=== PATIENT | female | born 1950 | race Caucasian/White ===

== ENCOUNTER 2021-07-14 05:57 | Observation (INO) | payer OTHER ==
[2021-07-10 13:23] LABS: Absolute Lymphocytes (CBC) 2.6 K/uL (0.7-4.9); Basophils % 1.1 % (0-1.3); Hematocrit 47.8 % (36.0-45.0); Lymphocytes % 20.8 % (15.3-44.8); MPV 9.5 fL (7.6-11.3); RBC Red Blood Cell Count 5.38 M/uL (3.86-4.86)
[2021-07-10 13:25] LABS: Urine Appearance CLEAR (Clear); Urine Bilirubin NEGATIVE (Negative); Urine Blood NEGATIVE (Negative); Urine Color DK YELLOW (Yellow); Urine Glucose NEGATIVE (Negative); Urine Protein NEGATIVE (Negative); Urine pH 5.5 (5.0-7.0)
[2021-07-10 13:29] LABS: Protime INR 0.96
[2021-07-10 13:40] LABS: Albumin 3.8 g/dL (3.4-5.0); Bilirubin Total 0.4 mg/dL (0.2-1.0); Potassium 4.3 mmol/L (3.5-5.1); Protein, Total 7.6 g/dL (6.4-8.2)
[2021-07-10 13:47] LABS: Urine Microscopic Reflex ORDER UMIC
[2021-07-10 13:54] LABS: Urine Bacteria <20 /HPF (<20); Urine Mucus 2+ /HPF (NONE SEEN); Urine RBC <5 /HPF (NONE SEEN)
[2021-07-14] MEDS ORDERED: GABAPENTIN 100 MG CAP ONE (06:04)
[2021-07-14] MEDS ORDERED: CELECOXIB 100 MG CAPSULE ONE (06:04)
[2021-07-14] MEDS ORDERED: ACETAMINOPHEN 500 MG TAB ONE (06:05)
[2021-07-14] MEDS ORDERED: NA CHLORIDE 0.9% 1,000 ML ONE ×2 (06:05→08:20)
[2021-07-14] MEDS ORDERED: CEFAZOLIN/SWI 2gm 2 GM/20 ML SYR ONE (06:05)
[2021-07-14] MEDS ORDERED: MIDAZOLAM HCL 2 MG/2 ML INJ ONE (06:30)
[2021-07-14] MEDS ORDERED: BUPIVACAINE 0.5% Inj,MDV 50 mL VIAL ONE (06:30)
[2021-07-14] MEDS ORDERED: FENTANYL CITR 100 MCG/2 ML ONE (06:30)
[2021-07-14] MEDS ORDERED: dexAMETHasone 10 MG/ML VIAL ONE (06:30)
[2021-07-14] MEDS ORDERED: LIDOCAINE 1% MPF 5 ML VIAL ONE (06:30)
[2021-07-14] MEDS ORDERED: BUPIVACAINE 0.25% PF 10 ML VIAL ONE (06:30)
[2021-07-14] MEDS ORDERED: KETAMINE HCL 500 MG/5 ML VIAL ONE (07:12)
[2021-07-14] MEDS ORDERED: propofoL 200 MG/20 ML VIAL IV ONE (07:12)
[2021-07-14] MEDS ORDERED: KETOROLAC 30 MG/ML INJ ONE (07:13)
[2021-07-14] MEDS ORDERED: ONDANSETRON 4 MG/2 ML VIAL ONE (07:13)
[2021-07-14] MEDS ORDERED: LIDOCAINE 2% MPF 5 ML VIAL ONE (07:13)
[2021-07-14] MEDS ORDERED: dexAMETHasone 4 MG/ML VIAL ONE (07:15)
[2021-07-14] MEDS ORDERED: HYDROMORPHONE HCL 1 MG/ML INJ ONE ×2 (07:22→11:22)
[2021-07-14] MEDS ORDERED: TRANEXAMIC ACID 1,000 MG in NA CHLORIDE 0.9% 50 ML IV ONE (09:00)
[2021-07-14] MEDS ORDERED: HYDROCODONE/APAP 7.5/325 MG TAB PO PRN (10:06)
[2021-07-14] MEDS ORDERED: MORPHINE 4 MG/ML SYR IV PRN (10:06)
[2021-07-14] MEDS ORDERED: ONDANSETRON 4 MG/2 ML VIAL IV PRN (10:06)
[2021-07-14] MEDS ORDERED: DOCUSATE NA 100 MG CAP PO PRN (10:06)
--- NOTE | 2021-07-14 10:13 | P.BOP ---
Preoperative diagnosis: left knee djd Postoperative diagnosis: same Primary procedure: left total knee arthoplasty Estimated blood loss: 100 cc Anesthesia: General Transferred to: Recovery Room Condition: Good
[2021-07-14] MEDS ORDERED: INSULIN -REGULAR HUMAN 50 UNIT/0.5 ML ML ONE (10:43)
--- NOTE | 2021-07-14 11:02 | OP ---
Date of Procedure: 07/14/2021 Surgeon: Armani Penaloza MD Preoperative Diagnosis: Left knee degenerative joint disease. Postoperative Diagnosis: Left knee degenerative joint disease. Procedure: Left total knee arthroplasty using the [employer]omet Vanguard System. Estimated Blood Loss: 100 cc. Complications: There were no complications. Specimens: No pathology specimens sent. Indication For Operation: Ms. Yadav is a 71-year-old female who unfortunately has severe arthritic c hanges to her left knee, primarily of the medial patellofemoral joint. Despite conservative care, giancarlo baldwin continued to have pain which limited her ADLs and at this time, elects for a total knee arthroplast y. The risks, benefits, and alternatives of this procedure were discussed with her. She states she understands things and wishes to proceed. Description Of Procedure: The patient was taken to the operating room and placed in the supine posit ion. General anesthesia was obtained by staff. Following this, well-padded tourniquet was placed on the superior left thigh. Left lower extremity was then prepped in the usual sterile fashion for the procedure. Following this, the knee was then bent and exsanguinated. Tourniquet was raised. A sta ndard anterior incision was taken down carefully through the skin only. Meticulous hemostasis has be en maintained using Bovie electrocautery. The appropriate plane was established and the extensor mec hanism was exposed. A standard medial parapatellar arthrotomy was then performed. Fulguration of ra ther normal-appearing synovial fluid. This was followed by eversion of the patella as well as resect ion of the medial and lateral meniscus as well as ACL. After this, the intramedullary alignment guid e was then placed in the femur and it was then cut distally. It was then sized to a 72.5. The remai nder of the femoral cuts were then performed. This was then transferred down to the tibia and tibial cut was performed with appropriate slope. The trials were then placed and did appear to be balanced in both flexion and extension, maybe slightly bit tight in flexion. A little more slope was cut aft er this. The patella was calipered and cut and the patella was then placed and lies easily without s ign of patellar instability. After this, the femur was then cut and the bone plug was placed and the tibia was punched and all surfaces were prepped for cementation and they were dry and the final comp onents with the exception of the tibial polyethylene were then placed and allowed to dry with removal of any unsupported cement. After this, the knee was brought through range of motion and this was fo und to be still balanced as well as come to full extension without difficulty as well as full flexion . Decision was made to move forward with this size poly. The final poly was then placed without dif ficulty. A locking bar was placed. The wound was again irrigated and the fascia was closed in a jailene ertight fashion using heavy Ethibond sutures. This was followed by closure of the skin using Vicryl followed by dakota. The patient was then placed in a well-padded sterile dressing, awakened and mark en to recovery room in good condition. There were no complications. /ALEXIS Voice ID: [id number] Report ID: [id number]
[2021-07-14 12:49] VITALS: BMI 32.1
--- NOTE | 2021-07-14 12:49 | P.CNS ---
Date of Consult: 07/14/21 Reason for Consult: Medical management Requesting Physician: Armani Penaloza Chief Complaint: Total knee replacement Allergies No Known Allergies Allergy (Verified 07/10/21 12:21) Home Medications: Aspirin [Adult Aspirin Regimen] 2 tab PO DAILY 07/10/21 Atorvastatin Calcium [Lipitor] 1 tab PO DAILY 07/10/21 Levothyroxine Sodium [Levothyroxine] 1 tab PO DAILY 07/10/21 Metformin HCl [Glucophage*] 1 tab PO DAILY 07/10/21 Metoprolol Tartrate [Lopressor*] 1 tab PO DAILY 07/10/21 Sertraline [Zoloft*] 1 tab PO DAILY 07/10/21 - Past Medical/Surgical History Diabetic: Yes -: DM -: Thyroid problem -: HTN -: Afib -: Hysterectomy -: [id number] - Family History Father Medical History: Cancer Mother Medical History: Heart disease, Cancer - Social History Alcohol use: No CD- Drugs: No Caffeine use: Yes Place of Residence: Home Physical Examination Temp Pulse Resp BP Pulse Ox 97.2 F 76 16 120/71 98 07/14/21 12:45 07/14/21 12:45 07/14/21 12:45 07/14/21 12:45 07/14/21 12:45
[2021-07-14] MEDS ORDERED: INFLUENZA VACCINE (for 6+ mo) 0.5 ML DOSE IMVAC ONE (14:00)
[2021-07-14] MEDS: CEFAZOLIN/NS 1gm 1 GM/50 ML BAG IVPB SCH (16:32)
[2021-07-15] MEDS: CEFAZOLIN/NS 1gm 1 GM/50 ML BAG IVPB SCH ×2 (00:39→08:40)
[2021-07-15 04:10] LABS: Hematocrit 37.8 % (36.0-45.0)
[2021-07-15] MEDS ORDERED: ENOXAPARIN 30 MG/0.3 ML SQ SCH (06:00)
[2021-07-15 10:02] VITALS: O2SAT 97
[2021-07-15 12:38] VITALS: BP 117/51; TEMP 97.2
--- NOTE | 2021-07-16 11:25 | P.DS ---
Discharge Date: 07/15/21 Disposition: ROUTINE DISCHARGE Discharge Condition: GOOD Reason for Admission: Total knee replacement Vital Signs/Physical Exam: Temp Pulse Resp BP Pulse Ox 97.2 F 79 18 117/51 L 94 07/15/21 12:00 07/15/21 12:00 07/15/21 12:00 07/15/21 12:00 07/15/21 12:00 Laboratory Data at Discharge: WBC 12.50 K/uL (4.3-10.9) H 07/10/21 12:51 Hgb 12.4 g/dL (12.0-15.0) D 07/15/21 03:50 Hct 37.8 % (36.0-45.0) D 07/15/21 03:50 Plt Count 301 K/uL (152-406) 07/10/21 12:51 PT 11.0 SECONDS (9.5-12.5) 07/10/21 13:11 INR 0.96 07/10/21 13:11 APTT 30.4 SECONDS (24.3-36.9) 07/10/21 13:11 Sodium 140 mmol/L (136-145) 07/10/21 13:11 Potassium 4.3 mmol/L (3.5-5.1) 07/10/21 13:11 BUN 21 mg/dL (7-18) H 07/10/21 13:11 Creatinine 0.90 mg/dL (0.55-1.3) 07/10/21 13:11 Glucose 122 mg/dL (74-106) H 07/10/21 13:11 Total Bilirubin 0.4 mg/dL (0.2-1.0) 07/10/21 13:11 AST 19 U/L (15-37) 07/10/21 13:11 ALT 26 U/L (12-78) 07/10/21 13:11 Alkaline Phosphatase 106 U/L (45-117) 07/10/21 13:11 Home Medications: Aspirin [Adult Aspirin Regimen] 2 tab PO DAILY 07/10/21 Atorvastatin Calcium [Lipitor] 1 tab PO DAILY 07/10/21 Levothyroxine Sodium [Levothyroxine] 1 tab PO DAILY 07/10/21 Metformin HCl [Glucophage*] 1 tab PO DAILY 07/10/21 Metoprolol Tartrate [Lopressor*] 1 tab PO DAILY 07/10/21 Sertraline [Zoloft*] 1 tab PO DAILY 07/10/21 Hydrocodone 7.5/APAP 325 [Goodman 7.5/325 mg] 1 tab PO Q6H PRN #30 tab 07/15/21 Rivaroxaban [Xarelto] 10 mg PO DAILY #20 tablet 07/15/21 New Medications: Hydrocodone 7.5/APAP 325 [Goodman 7.5/325 mg] 1 tab PO Q6H PRN #30 tab PRN Reason: Pain Rivaroxaban [Xarelto] 10 mg PO DAILY #20 tablet Physician Discharge Instructions: OK TO DC IV AND DC HOME FOLLOW-UP WITH PRIMARY CARE PROVIDER IN 1-2 WEEKS FOLLOW-UP WITH Orthopedics IN 1-2 WEEKS RETURN TO THE ER IF symptoms worsen CALL or TEXT DR. IYER AT [phone] IF ANY QUESTIONS REGARDING HOSPITAL STAY. PLEASE CALL THE FLOOR AT [phone] IF ANY MEDICATION OR NURSING QUESTIONS. Diet: AHA Activity: Fall precautions Followup: Pb Miller MD [Primary Care Provider] - 1-2 Weeks (call to schedule an appointment) Armani Penaloza MD [ACTIVE - CAN ADMIT] - 1-2 Weeks (call to schedule an appointment)
== END 2021-07-15 13:10 | disposition home or self-care (01) ==
LOC: OR 05:57 → 4TH 11:17
PROVIDERS: ADMIT Orthopaedic Surgery; ATTEND Orthopaedic Surgery
PROC: 0SRD069 Replacement of Left Knee Joint with Oxidized Zirconium on Polyethylene Synthetic Substitute, Cemented, Open Approach (ICD-10-PCS; principal; 2021-07-14 07:30)
DX: M17.12 Unilateral primary osteoarthritis, left knee (principal); E11.9 Type 2 diabetes mellitus without complications; I10 Essential (primary) hypertension; E03.9 Hypothyroidism, unspecified; I48.91 Unspecified atrial fibrillation; Z20.822 Contact with and (suspected) exposure to COVID-19; Z79.82 Long term (current) use of aspirin; Z79.899 Other long term (current) drug therapy; Z87.891 Personal history of nicotine dependence; Z90.710 Acquired absence of both cervix and uterus; Z82.49 Family history of ischemic heart disease and other diseases of the circulatory system; Z80.9 Family history of malignant neoplasm, unspecified
CPT/HCPCS: 36415; 80053; 81003; 81015; 82947; 85014; 85018; 85025; 85610; 85730; 86850; 86900; 86901; 87086; 87088; 88304; 88311; 94010; 97110; 97116; 97139; 97161; 97530; G0378; G0379; J0690; J1100; J1170; J1650; J2250; J2405; J2704; J3010; J7030; U0003

== ENCOUNTER 2022-08-07 21:33 | Emergency (ER) | payer OTHER ==
--- OUTSIDE RECORDS SUMMARY | 2022-08-07 21:36 | XMS REPORT | Continuity of Care Document ---
:1950 Author Organization [facility] Address [address] [place] [address] Dr. Lee [address] [place] [id number] Care Team Providers Name Role Phone Pb Miller Attending Clinician Unavailable Problems This patient has no known problems. Allergies, Adverse Reactions, Alerts This patient has no known allergies or adverse reactions. Medications This patient has no known medications. Procedures This patient has no known procedures. Encounters Start End Encounter Admission Attending Care Care Encounter Source Date/Time Date/Time Type Type Clinicians Facility Department ID 2021-10-01 Outpatient Miller, [facility] [id number] Common 15:48:02 Pb [facility] 2021-08-26 Outpatient Miller, [facility] [id number] Common 14:29:09 Pb [facility] 2021-08-26 Outpatient Miller, [facility] [id number] Common 14:23:19 Pb [facility] Results This patient has no known results.
[2022-08-07] MEDS ORDERED: NA CHLORIDE 0.9% 500 ML ONE (22:14)
[2022-08-07] MEDS ORDERED: METOPROLOL TARTRATE 5 MG/5 ML INJ IV ONE (22:14)
[2022-08-07 22:21] LABS: Absolute Lymphocytes (CBC) 3.9 K/uL (0.7-4.9); Hematocrit 44.4 % (36.0-45.0); MCV 86.9 fL (80-100); MPV 8.9 fL (7.6-11.3); RBC Red Blood Cell Count 5.11 M/uL (3.86-4.86)
[2022-08-07] MEDS ORDERED: dilTIAZem HCL 25 MG/5 ML VIAL IV ONE (22:32)
[2022-08-07 23:01] LABS: Albumin 3.6 g/dL (3.4-5.0); Bilirubin Total 0.2 mg/dL (0.2-1.0); Magnesium 1.8 mg/dL (1.6-2.4); Potassium 4.1 mmol/L (3.5-5.1); Protein, Total 7.2 g/dL (6.4-8.2); Thyroid Stimulating Hormone 2.63 uIU/mL (0.358-3.740); Troponin High Sensitivity 26.5 pg/mL (<58.9)
--- NOTE | 2022-08-07 23:40 | ER ---
Nurse's Notes [facility] Name: Laura Yadav Age: 72 yrs Sex: Female : 1950 Arrival Date: 08/07/2022 Time: 21:37 Bed 15 Private MD: Diagnosis: Atrial fibrillation with rapid ventricular response;Elevated brain natriuretic peptide level Presentation: 08/07 21:49 Chief complaint: Patient states: I took metropolol around 3 PM because my heart rate ws aa9 fast, I don't feel it helped much, I have A fib, then I got neck pain and nausea as well. Coronavirus screen: Vaccine status: Patient reports receiving the 2nd dose of the covid vaccine. Ebola Screen: No symptoms or risks identified at this time. Initial Sepsis Screen: Does the patient meet any 2 criteria? RR > 20 per min. HR > 90 bpm. Yes Does the patient have a suspected source of infection? No. Patient's initial sepsis screen is negative. Risk Assessment: Do you want to hurt yourself or someone else? Patient reports no desire to harm self or others. Onset of symptoms was August 07, 2022. 21:49 Method Of Arrival: Ambulatory aa9 21:49 Acuity: BONI 2 aa9 Triage Assessment: 21:54 General: Appears in no apparent distress. comfortable, Behavior is calm, cooperative, aa9 appropriate for age. Pain: Complains of pain in neck Pain currently is 5 out of 10 on a pain scale. Neuro: Level of Consciousness is awake, alert, obeys commands, Oriented to person, place, time, situation. Cardiovascular: Patient's skin is warm and dry. Cardiovascular: Denies chest pain, shortness of breath. Respiratory: Airway is patent Respiratory effort is even, unlabored. GI: No signs and/or symptoms were reported involving the gastrointestinal system. : No signs and/or symptoms were reported regarding the genitourinary system. Derm: Skin with poor turgor. Historical: - Allergies: 21:52 No Known Allergies; aa9 - Home Meds: 21:52 Metoprolol Tartrate Oral [Active]; metformin 500 mg Oral tab [Active]; sertraline 100 aa9 mg oral tab [Active]; atorvastatin 40 mg oral tab [Active]; levothyroxine 137 mcg tab [Active]; - PMHx: 21:52 Atrial fibrillation; Hypothyroidism; Diabetes mellitus; aa9 - PSHx: 21:52 knee sx; Total abdominal hysterectomy; aa9 - Immunization history:: Client reports receiving the 2nd dose of the Covid vaccine. - Social history:: Smoking status: Patient denies any tobacco usage or history of. Screenin:00 Abuse screen: Denies threats or abuse. pf1 23:00 [facility] ED Fall Risk Assessment (Adult) History of falling in the last 3 months, pf1 including since admission No falls in past 3 months (0 pts) Confusion or Disorientation No (0 pts) Intoxicated or Sedated No (0 pts) Impaired Gait No (0 pts) Mobility Assist Device Used No (0 pt) Altered Elimination No (0 pt) Score/Fall Risk Level 0 - 2 = Low Risk Oriented to surroundings, Maintained a safe environment, Educated pt \T\ family on fall prevention, incl call for assistance when getting out of bed, Assessed \T\ reinforced patient's understanding of fall precautions, Provided non-skid footwear, Hourly rounding (assess needs \T\ fall precautionary measures) done, Used ambulatory aids as needed (educated on \T\ assisted with), Used gait belt as appropriate. 23:00 Nutritional screening: No deficits noted. Tuberculosis screening: No symptoms or risk pf1 factors identified. Assessment: 22:00 General: Appears in no apparent distress. comfortable, well groomed, well developed, pf1 Behavior is calm, cooperative, appropriate for age. 22:00 Pain: Denies pain. Neuro: No deficits noted. Level of Consciousness is awake, alert, pf1 obeys commands, Oriented to person, place, time, situation. Cardiovascular: Reports nausea, palpitations, shortness of breath, since onset today at 1200. Capillary refill < 3 seconds. Respiratory: Reports shortness of breath on exertion Airway is patent Trachea midline Respiratory effort is even, unlabored, Respiratory pattern is regular, symmetrical. GI: Reports nausea. : No deficits noted. No signs and/or symptoms were reported regarding the genitourinary system. EENT: No deficits noted. No signs and/or symptoms were reported regarding the EENT system. Derm: No deficits noted. No signs and/or symptoms reported regarding the dermatologic system. 23:00 Reassessment: Patient appears in no apparent distress at this time. No changes from pf1 previously documented assessment. Patient and/or family updated on plan of care and expected duration. Pain level reassessed. Patient is alert, oriented x 3, equal unlabored respirations, skin warm/dry/pink. Patient states feeling better. Patient states symptoms have improved. Vital Signs: 21:49 BP 131 / 93; Pulse 156; Resp 21 S; Temp 97; Pulse Ox 96% on R/A; Weight 88.45 kg (R); aa9 Height 5 ft. 7 in. (170.18 cm) (R); Pain 0/10; 22:00 BP 123 / 79; Pulse 149; Resp 18; Pulse Ox 97% on R/A; Pain 0/10; pf1 22:30 BP 122 / 81; Pulse 133; Resp 14; Pulse Ox 96% on R/A; Pain 0/10; pf1 22:33 BP 118 / 77; Pulse 77; Resp 14; Pulse Ox 96% on R/A; Pain 0/10; pf1 23:00 BP 117 / 52; Pulse 78; Resp 17; Pulse Ox 98% ; Pain 0/10; pf1 23:30 BP 110 / 72; Pulse 78; Resp 18; Temp 97.5; Pulse Ox 100% on R/A; Pain 0/10; pf1 21:49 Body Mass Index 30.54 (88.45 kg, 170.18 cm) aa9 ED Course: 21:37 Patient arrived in ED. ja2 21:52 Triage completed. aa9 21:54 Arm band placed on. aa9 21:54 Placed in gown. Bed in low position. Call light in reach. Side rails up X 1. Client mb9 placed on continuous cardiac and pulse oximetry monitoring. NIBP monitoring applied. strawhat blocking operator on. 22:01 Licha Fry MD is Attending Physician. sd2 22:03 Apoorva giron, CORINE is Primary Nurse. pf1 22:05 EKG done, by heavy truck technician. reviewed by Licha Fry MD. mb9 22:10 Inserted saline lock: 20 gauge in right antecubital area, using aseptic technique. pf1 Blood collected. 22:14 T4 Free Sent. mb9 22:14 TSH Sent. mb9 22:14 Troponin High Sensitivity Sent. mb9 22:14 Magnesium Sent. mb9 22:14 CMP Sent. mb9 22:14 CBC with Diff Sent. mb9 22:17 BNP Sent. mb9 22:29 XRAY Chest (1 view) In Process Unspecified. EDMS 23:39 Pb Miller MD is Referral Physician. sd2 23:58 IV discontinued, intact, bleeding controlled, No redness/swelling at site. Pressure pf1 dressing applied. 23:59 No provider procedures requiring assistance completed. pf1 Administered Medications: 22:14 Drug: NS 0.9% 500 ml Route: IV; Rate: bolus; Site: right antecubital; mb9 22:46 Follow up: Response: No adverse reaction; IV Status: Completed infusion; IV Intake: pf1 500ml 22:16 Drug: Metoprolol 5 mg Route: IVP; Site: right antecubital; pf1 22:46 Follow up: Response: No adverse reaction; Marked relief of symptoms; Cardiac rhythm is pf1 unchanged 22:27 CANCELLED (Physician Discretion): Cardizem (diltiazem) 20 mg IVP once; Over 2 minutes sd2 22:35 Drug: Cardizem (diltiazem) 15 mg Route: IVP; Site: right antecubital; pf1 23:30 Follow up: Response: No adverse reaction; Marked relief of symptoms; Cardiac rhythm pf1 changed Medication: 08/08 00:00 VIS not applicable for this client. pf1 Intake: 08/07 22:46 IV: 500ml; Total: 500ml. pf1 Outcome: 23:40 Discharge ordered by . sd2 23:57 Discharged to home ambulatory, with family. pf1 23:57 Condition: improved 23:57 Discharge instructions given to patient, family, Instructed on discharge instructions, follow up and referral plans. Demonstrated understanding of instructions, follow-up care. 08/08 00:00 Patient left the ED. pf1 Signatures: Dispatcher [employer] EDMS Patricia Cobian Stephanie, MD MD sd2 Jessica Pascual RN RN Ashlee Tavares RN RN mb9 Apoorva giron RN RN pf1
--- NOTE | 2022-08-07 23:40 | EDPHYS ---
Physician Documentation [facility] Name: Laura Yadav Age: 72 yrs Sex: Female : 1950 Arrival Date: 08/07/2022 Time: 21:37 Bed 15 Private MD: ED Physician Licha Fry HPI: 08/07 22:07 This 72 yrs old Female presents to ER via Ambulatory with complaints of Neck Pain, sd2 >24Hrs Old, Nausea, Afib. 22:07 72-year-old female presents with chief complaint of palpitations and tachycardia that sd2 started after lunchtime today. The patient does have a history of atrial fibrillation and is on metoprolol daily for this as well as aspirin. She reports that she took an additional dose of metoprolol twice of the fast acting type which she was giving by her title investigator to take when she has these episodes. It unfortunately did not help. She does endorse associated shortness of breath and dyspnea on exertion. She denies any chest pain but does endorse nausea without vomiting.. Historical: - Allergies: 21:52 No Known Allergies; aa9 - Home Meds: 21:52 Metoprolol Tartrate Oral [Active]; metformin 500 mg Oral tab [Active]; sertraline 100 aa9 mg oral tab [Active]; atorvastatin 40 mg oral tab [Active]; levothyroxine 137 mcg tab [Active]; - PMHx: 21:52 Atrial fibrillation; Hypothyroidism; Diabetes mellitus; aa9 - PSHx: 21:52 knee sx; Total abdominal hysterectomy; aa9 - Immunization history:: Client reports receiving the 2nd dose of the Covid vaccine. - Social history:: Smoking status: Patient denies any tobacco usage or history of. ROS: 22:07 Constitutional: Negative for fever, chills, and weight loss, Eyes: Negative for injury, sd2 pain, redness, and discharge, Cardiovascular: Negative for chest pain, palpitations, and edema, Abdomen/GI: Negative for abdominal pain, nausea, vomiting, diarrhea. MS/Extremity: Negative for injury and deformity, Skin: Negative for injury, rash, and discoloration, Neuro: Negative for headache, numbness and tingling. 22:07 Respiratory: Positive for dyspnea on exertion, shortness of breath, Negative for cough, wheezing. Exam: 22:34 ECG was reviewed by the Attending Physician. Atrial fibrillation with rapid ventricular sd2 response, rate 149, no STEMI criteria 22:34 Constitutional: This is a well developed, well nourished patient who is awake, alert, sd2 and in no acute distress. Head/Face: Normocephalic, atraumatic. Eyes: EOMI, normal conjunctiva bilaterally Chest/axilla: Normal chest wall appearance and motion. Nontender with no deformity. 22:34 Cardiovascular: Tachycardic rate and irregularly irregular rhythm. No murmurs, rubs or gallops. 2+ distal pulses. Respiratory: Lungs have equal breath sounds bilaterally, clear to auscultation and percussion. No rales, rhonchi or wheezes noted. No increased work of breathing, no retractions or nasal flaring. Abdomen/GI: Soft, non-tender, with normal bowel sounds. No guarding or rebound. No evidence of tenderness throughout. Skin: Warm, dry with normal turgor. Normal color with no rashes, no lesions, and no evidence of cellulitis. MS/ Extremity: Pulses equal, no cyanosis. Neurovascular intact. Full, normal range of motion. Ambulatory without difficulty. Psych: Awake, alert, with orientation to person, place and time. Behavior, mood, and affect are within normal limits. 22:45 ECG was reviewed by the Attending Physician. NSR, rate 72, no STEMI criteria sd2 Vital Signs: 21:49 BP 131 / 93; Pulse 156; Resp 21 S; Temp 97; Pulse Ox 96% on R/A; Weight 88.45 kg (R); aa9 Height 5 ft. 7 in. (170.18 cm) (R); Pain 0/10; 22:00 BP 123 / 79; Pulse 149; Resp 18; Pulse Ox 97% on R/A; Pain 0/10; pf1 22:30 BP 122 / 81; Pulse 133; Resp 14; Pulse Ox 96% on R/A; Pain 0/10; pf1 22:33 BP 118 / 77; Pulse 77; Resp 14; Pulse Ox 96% on R/A; Pain 0/10; pf1 23:00 BP 117 / 52; Pulse 78; Resp 17; Pulse Ox 98% ; Pain 0/10; pf1 23:30 BP 110 / 72; Pulse 78; Resp 18; Temp 97.5; Pulse Ox 100% on R/A; Pain 0/10; pf1 21:49 Body Mass Index 30.54 (88.45 kg, 170.18 cm) aa9 MDM: 22:01 Patient medically screened. sd2 22:34 Differential diagnosis: Differential diagnosis includes but is not limited to: ACS, sd2 DVT/PE, pneumothorax, dissection, musculoskeletal, anxiety, anemia, electrolyte abnormality, pneumonia, CHF, COPD among others. Data reviewed: vital signs, nurses notes, EKG. 23:37 Data reviewed: lab test result(s), radiologic studies. Counseling: I had a detailed sd2 discussion with the patient and/or guardian regarding: the historical points, exam findings, and any diagnostic results supporting the discharge/admit diagnosis, lab results, radiology results, the need for outpatient follow up, to return to the emergency department if symptoms worsen or persist or if there are any questions or concerns that arise at home. ED course: Labs and imaging reviewed. Labs grossly WNCL aside from elevated BNP. Trop neg. EKG with improvement after Cardizem to NSR and stable BP. No improvement initially after IV metoprolol. Pt feels much improved. Denies any further SOB. No respiratory distress or hypoxia. Pt was offered admission due to elevated BNP but after discussion of risks and benefits, would prefer to go home and follow up with Dr. Miller on Tuesday as she already has a scheduled appointment. She verbalizes understanding of discharge plan and strict return precautions at this time. . 08/07 22:07 Order name: CBC with Diff; Complete Time: 23:05 sd2 08/07 22:07 Order name: CMP; Complete Time: 23:05 sd08/07 22:07 Order name: Magnesium; Complete Time: 23:05 2 08/07 22:07 Order name: Troponin High Sensitivity; Complete Time: 23:05 sd2 08/07 22:07 Order name: BNP; Complete Time: 23:05 sd2 08/07 22:07 Order name: TSH; Complete Time: 23:05 2 08/07 22:07 Order name: EKG - Nurse/Tech; Complete Time: 22:14 sd2 08/07 22:07 Order name: XRAY Chest (1 view) sd2 08/07 22:07 Order name: T4 Free; Complete Time: 23:05 sd2 08/07 22:14 Order name: IV Saline Lock; Complete Time: 22:19 mb9 Administered Medications: 22:14 Drug: NS 0.9% 500 ml Route: IV; Rate: bolus; Site: right antecubital; mb9 22:46 Follow up: Response: No adverse reaction; IV Status: Completed infusion; IV Intake: pf1 500ml 22:16 Drug: Metoprolol 5 mg Route: IVP; Site: right antecubital; pf1 22:46 Follow up: Response: No adverse reaction; Marked relief of symptoms; Cardiac rhythm is pf1 unchanged 22:27 CANCELLED (Physician Discretion): Cardizem (diltiazem) 20 mg IVP once; Over 2 minutes sd2 22:35 Drug: Cardizem (diltiazem) 15 mg Route: IVP; Site: right antecubital; pf1 23:30 Follow up: Response: No adverse reaction; Marked relief of symptoms; Cardiac rhythm pf1 changed Disposition Summary: 08/07/22 23:40 Discharge Ordered Location: Home sd2 Problem: an acute exacerbation sd2 Symptoms: are resolved sd2 Condition: Stable sd2 Diagnosis - Atrial fibrillation with rapid ventricular response sd2 - Elevated brain natriuretic peptide level sd2 Followup: sd2 - With: Pb Miller MD - When: 1 - 2 days - Reason: Recheck today's complaints, Continuance of care, Re-evaluation by your physician Discharge Instructions: - Discharge Summary Sheet sd2 - Atrial Fibrillation sd2 Forms: - Medication Reconciliation Form sd2 - Thank You Letter sd2 - Antibiotic Education sd2 - Prescription Opioid Use sd2 Signatures: Dispatcher [employer] Licha Vasquez MD MD sd2 Jessica Pascual RN RN aa9 Ashlee Robert RN RN mb9 Apoorva giron RN RN pf1 Corrections: (The following items were deleted from the chart) : 22:27 Cardizem (diltiazem) 20 mg IVP once; Over 2 minutes ordered. sd2 sd2
[2022-08-08 02:01] VITALS: BP 110/72; TEMP 97.5; O2SAT 100
--- NOTE | 2022-08-08 20:35 | RAD REPORT ---
EXAM DESCRIPTION: Chest Single View CLINICAL HISTORY: 72 years Female, SOB TECHNIQUE: 1 view (Single frontal view of the chest) COMPARISON: None. FINDINGS: Patient's body habitus results in projectional magnification artifact. LINES AND TUBES: None. CARDIOVASCULAR STRUCTURES: Normal heart size. Mild pulmonary venous congestion versus projectional a rtifact. LUNGS: No confluent areas of acute consolidation. PLEURA: No layering pleural effusions. No pneumothorax. BONES: No acute osseous abnormality of the thorax. IMPRESSION: 1. Mild pulmonary venous congestion versus projectional artifact. 2. Otherwise, no other acute cardiopulmonary disease. Electronically signed by: Son Johnson MD 08/07/2022 10:42 PM PUG MILL OPERATOR HELPER Due to temporary technical issues with the PACS/Fluency reporting system, reports are being signed by the in house radiologists without review as a courtesy to insure prompt reporting. The interpreting radiologist is fully responsible for the content of the report.
--- NOTE | 2022-08-09 16:30 | EKG ---
Test Date: 2022-08-07 Test Time: 22:05:35 Contact Lens Cutter: LEON MEASUREMENT RESULTS: Intervals: Rate: 149 ND: QRSD: 76 QT: 270 QTc: 425 Paxton: P: ND: QRS: 49 T: 253 INTERPRETIVE STATEMENTS: Supraventricular tachycardia Nonspecific ST and T wave abnormality Abnormal ECG Compared to ECG 06/08/2021 10:15:22 ST (T wave) deviation now present Sinus rhythm no longer present T-wave abnormality no longer present Electronically Signed On 08-09-22 16:27:32 ASSISTANT ART DIRECTOR by Gurpreet Mercado
--- NOTE | 2022-08-09 16:30 | EKG ---
Test Date: 2022-08-07 Test Time: 22:38:33 [employer] Teacher: LEON MEASUREMENT RESULTS: Intervals: Rate: 72 GA: 160 QRSD: 82 QT: 386 QTc: 422 Ong: P: 45 GA: 160 QRS: 49 T: 45 INTERPRETIVE STATEMENTS: Normal sinus rhythm Normal ECG Compared to ECG 08/07/2022 22:05:35 Supraventricular tachycardia no longer present ST (T wave) deviation no longer present Electronically Signed On 08-09-22 16:27:27 DECKHAND TUNA BOAT by Gurpreet Mercado
== END 2022-08-08 | disposition home or self-care (01) ==
LOC: ER 21:33
DX: I48.19 Other persistent atrial fibrillation (principal); R79.89 Other specified abnormal findings of blood chemistry; M54.2 Cervicalgia; E11.9 Type 2 diabetes mellitus without complications; E03.9 Hypothyroidism, unspecified
CPT/HCPCS: 96361; 93005 ×2; 85025; 36415; 83735; 84443; 84484; 84439; 80053; 83880; 71045; 96375; 96374; 99284; J7040

== ENCOUNTER 2023-01-05 07:24 | Day surgery (SDC) | payer OTHER ==
[~2023-01-05 07:24] MED LIST: ATROPINE SULF 1 MG/10 ML SYR IV ONE; FLUMAZENIL 0.1 MG/ML (5 mL VIAL) IV ONE; LIDOCAINE VISCOUS 2% SOLN 15 ML UDC ONE; MIDAZOLAM HCL 10 ML ONE; PHENOL 1.4% ORAL SPRAY 180ML ONE
--- NOTE | 2023-01-05 14:29 | OP ---
Date of Procedure: 01/05/2023 Surgeon: LAKISHA MAYER Procedure Performed: Transesophageal echocardiogram. Indication: Atrial fibrillation, status post Watchman. Description Of Procedure: After risks, benefits, symptoms were explained, the patient agreed to proc edure and signed informed consent. The patient was brought into the room and after appropriate time- out, the back of throat was numbed using viscous and lidocaine, and then given 3 mg of Versed. PHILLY p robe was inserted. PHILLY was performed. Watchman was seated very well and no leak. PHILLY probe was rem davy and the patient was sent to recovery in stable condition. Conclusion: Successful transesophageal echocardiogram. Plan: Stop the Hanna. /ALEXIS Voice ID: [id number] Report ID: [id number]
--- NOTE | 2023-01-06 07:37 | TEE ---
TRANSESOPHAGEAL ECHOCARDIOGRAM REPORT CARDIOLOGY DEPARTMENT DATE OF STUDY: 01/05/2023 HEIGHT: 5'7" WEIGHT: 195 lbs DIAGNOSIS: POST WATCHMAN GOLD BEATER COMMENTS: PHILLY CARDIAC HISTORY: CATHERIZATION: SURGERY: PROSTHETIC VALVE: PACEMAKER: 2 DIMENSIONAL ASSESSMENT: RIGHT ATRIUM: LEFT ATRIUM: RIGHT VENTRICLE: LEFT VENTRICLE: TRICUSPID VALVE: MITRAL VALVE: PULMONIC VALVE: AORTIC VALVE: PERICARDIAL EFFUSION: AORTIC ROOT: EJECTION FRACTION: 55-60 % LEFT VENTRICULAR WALL MOTION: DOPPLER/COLOR FLOW: COMMENTS: 1. TRANSESOPHAGEAL ECHOCARDIOGRAM PROBE WAS INSERTED WITHOUT DIFFICULTY 2. NORMAL LEFT VENTRICULAR EJECTION FRACTION 55-60% 3. MILD MITRAL REGURGITATION 4. WATCHMAN DEVICE IS SEATED WELL. NO LEAK, NO THROMBUS TECHNOLOGIST: ASCENCION BETANCOURT
== END 2023-01-05 10:50 | disposition home or self-care (01) ==
LOC: EKG 07:24
PROVIDERS: ATTEND Internal Medicine
DX: I48.91 Unspecified atrial fibrillation (principal); I34.0 Nonrheumatic mitral (valve) insufficiency; I10 Essential (primary) hypertension; E11.9 Type 2 diabetes mellitus without complications; Z98.890 Other specified postprocedural states; Z87.891 Personal history of nicotine dependence; Z79.01 Long term (current) use of anticoagulants; Z79.899 Other long term (current) drug therapy; Z82.49 Family history of ischemic heart disease and other diseases of the circulatory system
CPT/HCPCS: 93312; 82947; J2250; J0461